=== PATIENT | male | born 1955 | race African-American/Black ===

== ENCOUNTER 2020-09-27 20:56 | Emergency (ER) | payer MEDICARE, MEDICAID ==
[~2020-09-27] VITALS: Ht 190.5 cm; Wt 82.0 kg
[2020-09-27] MEDS ORDERED: HYDROCODONE/ACETAMINOPHEN 5/325MG TABLET PO ONE (22:00)
[2020-09-27 22:01] VITALS: BP 151/32
[2020-09-27] MEDS ORDERED: BACITRACIN 15GM TUBE TOP ONE (22:15)
== END 2020-09-27 22:42 | disposition home or self-care (01) ==
LOC: ER 20:56
DX: M25.572 Pain in left ankle and joints of left foot (principal); Z98.890 Other specified postprocedural states; Z99.3 Dependence on wheelchair
CPT/HCPCS: 73610; 99283

== ENCOUNTER 2021-02-14 17:36 | Emergency (ER) | payer MEDICARE, MEDICAID ==
[~2021-02-14] VITALS: Ht 190.5 cm; Wt 81.8 kg
[2021-02-14 22:40] VITALS: BP 133/81
== END 2021-02-14 22:45 | disposition home or self-care (01) ==
LOC: ER 17:36
DX: L97.929 Non-pressure chronic ulcer of unspecified part of left lower leg with unspecified severity (principal); Z99.3 Dependence on wheelchair; Z98.890 Other specified postprocedural states
CPT/HCPCS: 99281

== ENCOUNTER 2021-03-11 18:44 | Emergency (ER) | payer MEDICARE, MEDICAID ==
[~2021-03-11] VITALS: Ht 190.5 cm; Wt 82.0 kg
[2021-03-11] MEDS ORDERED: MORPHINE SULFATE 4 MG/ML CPJ (NOT FOR IM USE) IV STA (22:06)
[2021-03-11] MEDS ORDERED: ONDANSETRON HCL 4MG/2ML INJ IV STA (22:06)
[2021-03-11] MEDS ORDERED: PIPERACILLIN/TAZ 3.375G PREMIX 50 ML IV ONE (22:15)
[2021-03-11] MEDS ORDERED: SODIUM CHLORIDE 0.9% 1,000 ML IV ONE (22:15)
[2021-03-11] MEDS ORDERED: AZITHROMYCIN 500 MG in DEXT 5% WATER 250 ML IV ONE (22:15)
[2021-03-11 23:33] LABS: BASOPHILS % 0.7 % (0.0-2.0); EOSINOPHILS % 9.5 % (0.0-5.0); HEMATOCRIT. 38.1 % (42.0-52.0); HEMOGLOBIN. 13.4 g/dL (14.0-18.0); LYMPHOCYTES % 29.4 % (20.0-50.0); MEAN CORPUSCULAR HEMOGLOBIN 32.8 pg (28.0-32.0); MEAN CORPUSCULAR VOLUME 93.4 fL (80.0-94.0); MEAN PLATELET VOLUME 7.5 fl (7.4-10.4); MONOCYTES % 10.4 % (2.0-8.0); PLATELET 204 x1000/uL (130-400); RED BLOOD CELL COUNT 4.08 mill/uL (4.7-6.1); RED CELL DISTRIBUTION WIDTH 13.4 % (11.6-14.6)
[2021-03-11 23:40] LABS: CHLORIDE 107 mEq/L (98-107)
[2021-03-12] MEDS ORDERED: VANCOMYCIN 1 G PREMIX 200 ML IV ONE (04:15)
[2021-03-12 11:17] VITALS: BP 123/69
[2021-03-13] MEDS ORDERED: SULF1TAB48 MT (21:40)
== END 2021-03-12 11:20 | disposition left against medical advice (07) ==
LOC: ER 19:29 → CANRESERV 03-12 08:27 → ENRESERV 03-12 08:27 → EDBEDREQSVC 03-12 08:53 → CANBEDREQ 03-12 09:36 → ER 03-12 11:20
DX: L03.116 Cellulitis of left lower limb (principal); F12.10 Cannabis abuse, uncomplicated; Z20.822 Contact with and (suspected) exposure to COVID-19; Z98.890 Other specified postprocedural states
CPT/HCPCS: 36415; 71045; 73590; 73610; 73630; 80053; 83605; 84145; 85025; 87040; 87426; 96365; 96367; 96375; 99285; J0456; J2270; J2405; J2543; J3370; J7030; J7060

== ENCOUNTER 2021-03-13 19:31 | Emergency (ER) | payer MEDICARE, MEDICAID ==
[~2021-03-13] VITALS: Ht 190.5 cm; Wt 82.0 kg
[2021-03-13] MEDS ORDERED: VANCOMYCIN 1 G PREMIX 200 ML IV NR (20:15)
[2021-03-13 20:38] LABS: BASOPHILS % 0.7 % (0.0-2.0); EOSINOPHILS % 5.9 % (0.0-5.0); HEMATOCRIT. 38.8 % (42.0-52.0); HEMOGLOBIN. 13.3 g/dL (14.0-18.0); LYMPHOCYTES % 23.8 % (20.0-50.0); MEAN CORPUSCULAR HEMOGLOBIN 32.4 pg (28.0-32.0); MEAN CORPUSCULAR VOLUME 94.4 fL (80.0-94.0); MEAN PLATELET VOLUME 7.9 fl (7.4-10.4); MONOCYTES % 8.9 % (2.0-8.0); NEUTROPHILS % 60.7 % (40.0-76.0); PLATELET 210 x1000/uL (130-400); RED BLOOD CELL COUNT 4.11 mill/uL (4.7-6.1); RED CELL DISTRIBUTION WIDTH 13.2 % (11.6-14.6)
[2021-03-13 20:39] LABS: CLARITY URINE CLEAR (CLEAR); COLOR URINE YELLOW (YELLOW); KETONES URINE NEGATIVE (NEGATIVE); LEUKOCYTE ESTERASE URINE NEGATIVE (NEGATIVE); NITRITE URINE NEGATIVE (NEGATIVE); OCCULT BLOOD URINE NEGATIVE (NEGATIVE); PH URINE 6.5 (4.5-8.0); PROTEIN URINE NEGATIVE (NEGATIVE)
[2021-03-13 20:44] LABS: CHLORIDE 104 mEq/L (98-107)
[2021-03-13 20:46] LABS: INR 1.1; PROTHROMBIN TIME 11.3 sec (9.6-11.0)
[2021-03-13 20:50] LABS: C REACTIVE PROTEIN QUANT 7.6 mg/L (0.0-3.0)
[2021-03-13] MEDS ORDERED: SULF1TAB48 MT (21:40)
[2021-03-13] MEDS ORDERED: SULFAMETHOXAZOLE/TRIMETHOPRIM 800/160MG TABLET PO ONE (21:45)
[2021-03-13 22:19] VITALS: BP 108/72
== END 2021-03-13 22:20 | disposition home or self-care (01) ==
LOC: ER 19:31 → CANBEDREQ 03-14 02:28
DX: L03.032 Cellulitis of left toe (principal); I73.9 Peripheral vascular disease, unspecified; F12.10 Cannabis abuse, uncomplicated; F17.210 Nicotine dependence, cigarettes, uncomplicated; Z98.890 Other specified postprocedural states
CPT/HCPCS: 36415; 71045; 73630; 80053; 81003; 83605; 84145; 84484; 85025; 85610; 86140; 87040; 87086; 96374; 99284; J3370

== ENCOUNTER 2021-09-13 19:38 | Emergency (ER) | payer OTHER, MEDICAID ==
[~2021-09-13] VITALS: Ht 190.5 cm; Wt 79.0 kg
[~2021-09-13 19:38] MED LIST: SULF1TAB48 MT
[2021-09-13 19:40] VITALS: BP 106/61
== END 2021-09-14 00:30 | disposition left against medical advice (07) ==
LOC: ER 19:38
DX: Z53.21 Procedure and treatment not carried out due to patient leaving prior to being seen by health care provider (principal)

== ENCOUNTER 2023-10-03 17:56 | Emergency (ER) | payer MEDICARE, MEDICAID ==
[~2023-10-03] VITALS: Ht 190.5 cm; Wt 70.0 kg
[2023-10-03 18:05] VITALS: BP 115/56; PULSE 65; RESP 18; TEMP 98.3; O2SAT 99
[2023-10-03] MEDS ORDERED: TRAZ150T78 PO ×2 (18:17→19:27)
[2023-10-03] MEDS ORDERED: TAMS-11 PO ×2 (18:17→19:27)
[2023-10-03] MEDS ORDERED: OMEP20CA14 PO ×2 (18:17→19:27)
[2023-10-03] MEDS ORDERED: IBUP-2028 PO ×2 (18:17→19:27)
[2023-10-03] MEDS ORDERED: HYDR50SY PO ×2 (18:17→19:27)
== END 2023-10-03 19:40 | disposition home or self-care (01) ==
LOC: ER 17:56
DX: R68.89 Other general symptoms and signs (principal); Z76.0 Encounter for issue of repeat prescription
CPT/HCPCS: 99281

== ENCOUNTER 2024-09-19 19:49 | Emergency (ER) | payer MEDICARE, MEDICAID ==
[~2024-09-19] VITALS: Ht 193 cm; Wt 105.0 kg
[~2024-09-19 19:49] MED LIST changes: +HYDR50SO PO; +IBUP-2028 PO; +OMEP20CA14 PO; +TAMS-11 PO; +TRAZ150T78 PO
[2024-09-19 20:31] VITALS: BP 136/75; TEMP 36.8; O2SAT 99
[2024-09-19 20:35] VITALS: PULSE 77; RESP 16; O2SAT 96
[2024-09-19] MEDS ORDERED: NAPR-1176 MT (23:57)
[2024-09-19] MEDS ORDERED: LIDO700A15 TP (23:57)
[2024-09-20] MEDS: KETOROLAC 15MG/ML VIAL IM ONE (00:12)
== END 2024-09-20 00:20 | disposition home or self-care (01) ==
LOC: ER 19:49
DX: L60.0 Ingrowing nail (principal); F12.90 Cannabis use, unspecified, uncomplicated; Z99.3 Dependence on wheelchair; Z79.899 Other long term (current) drug therapy; Z79.1 Long term (current) use of non-steroidal anti-inflammatories (NSAID)
CPT/HCPCS: 99283; 96372; J1885